=== PATIENT | female | born 1995 | race African-American/Black ===

== ENCOUNTER 2021-06-30 20:33 | Emergency (ER) | payer BC ==
[~2021-06-30] VITALS: Ht 170.2 cm; Wt 118.8 kg
--- NOTE | 2021-06-30 21:26 | PHYS DOC ---
Past History Past Medical History: Asthma Past Surgical History: No Surgical History Smoking: Non-smoker Alcohol Use: None Drug Use: None General Adult EDM: Chief Complaint: LOWER EXTREMITY SWELLING HPI: HPI: 26-year-old female presents with 1-2 day history of bilateral lower extremity edema, headache, and shortness of breath. Patient reports she is 7 months as a . Denies any vaginal bleeding or discharge. Patient reports recent OB visit 2 weeks ago without any concern, however the prior visit there was some possible concerned that patient may develop preeclampsia. Patient reports she recently traveled and had been hot tubbing and had increased activity prior to the symptoms starting. Patient reports she spoke to her sister who is a "triage nurse "who instructed patient to present to the ER for further evaluation. Denies trauma. Denies fever or chills. Reports prior positive COVID-19 test approximately 1 month ago. Review of Systems: Review of Systems: Constitutional: Denies fever or chills Eyes: Denies redness or eye pain HENT: Denies nasal congestion or sore throat Respiratory: Denies cough; reports mild shortness of breath Cardiovascular: Denies chest pain or palpitations GI: Denies abdominal pain, nausea, or vomiting /SOFTWARE TESTER: Denies dysuria or hematuria; reports ; denies vaginal bleeding or discharge Musculoskeletal: Denies back pain; reports leg swelling Integument: Denies rash or skin lesions Neurologic: Reports headache; denies focal weakness or sensory changes Complete systems were reviewed and found to be within normal limits, except as documented in this note. Current Medications: Current Meds: Current Medications Medications (Trade) Dose Ordered [facility] Start Time Stop Time Status Last Admin Dose Admin Acetaminophen (Tylenol) 500 mg 1X ONCE 06/30/21 21:15 06/30/21 21:16 UNV Physical Exam: PE: Constitutional: Well developed, well nourished, no acute distress, non-toxic appearance HENT: Normocephalic, atraumatic Eyes: PERRL, EOMI, conjunctiva normal, no discharge Neck: Normal range of motion, supple Lungs & Thorax: No respiratory distress, equal chest rise and fall Abdomen: Gravid abdomen, no tenderness Skin: Warm, dry, no erythema, no rash Extremities: No tenderness, ROM intact, 2+ BLE edema- non-pitting Neurologic: Alert and oriented X 3, normal motor function, normal sensory function, no focal deficits noted Psychologic: Affect normal, judgment normal EKG: EKG: [] Radiology/Procedures: Radiology/Procedures: [] Heart Score: C/O Chest Pain: N/A Course & Med Decision Making: Course & Med Decision Making Pertinent Lab studies reviewed. (See chart for details) female presents with 1 to 2-day history of bilateral lower extremity edema, headache, and shortness of breath. Vital signs stable. Blood pressure within normal limits. Sats stable. Labs obtained and posted to chart. heart tones normal. Patient stable for discharge with outpatient follow-up with PCP/OB-SOFTWARE TESTER. Discussed findings and plan with patient and significant other, who acknowledge understanding and agreement. [employer] Disclaimer: [employer] Disclaimer: This electronic medical record was generated, in whole or in part, using a voice recognition dictation system. Departure Departure: Impression: Primary Impression: Mild peripheral edema Additional Impressions: Headache Qualified Codes: R51.9 - Headache, unspecified Third trimester Disposition: HOME / SELF CARE / HOMELESS Condition: STABLE Referrals: PCP,NO (PCP) Patient Instructions: Headache, FAQs, Peripheral Edema, - Third Trimester, [id number] Additional Instructions: Elevate extremities. Take Tylenol for headache. Please follow closely with your PCP/OB-SOFTWARE TESTER for further evaluation and treatment. CONNIE SCHRADER DO Jun 30, 2021 21:26
[2021-06-30] MEDS: ACETAMINOPHEN 500 MG TABLET PO ONE (21:35)
[2021-06-30 21:52] LABS: BASO % 0 % (0-3); EOS # 0.3 x10^3/uL (0.0-0.7); EOS % 2 % (0-3); HEMATOCRIT 34.6 % (36.0-47.0); HEMOGLOBIN 11.4 g/dL (12.0-15.5); LYMPH # 2.8 x10^3/uL (1.0-4.8); LYMPH % 20 % (24-48); MEAN CORPUSCULAR HEMOGLOBIN 30 pg (25-35); MEAN CORPUSCULAR HGB CONC 33 g/dL (31-37); MEAN CORPUSCULAR VOLUME 91 fL (79-100); MONO # 0.9 x10^3/uL (0.0-1.1); MONO % 7 % (0-9); NEUT # 9.8 x10^3uL (1.8-7.7); NEUT % 71 % (31-73); PLATELET COUNT 233 x10^3/uL (140-400); RED BLOOD COUNT 3.82 x10^6/uL (3.50-5.40); RED CELL DISTRIBUTION WIDTH 14.1 % (11.5-14.5); WHITE BLOOD COUNT 13.8 x10^3/uL (4.0-11.0)
[2021-06-30 21:54] VITALS: BP 115/63
[2021-06-30 22:01] LABS: CREATININE 0.5 mg/dL (0.6-1.0); GFR 183.4; POTASSIUM 3.8 mmol/L (3.5-5.1)
[2021-06-30 22:03] LABS: BILIRUBIN,URINE NEG (NEG); CLARITY,URINE CLOUDY; COLOR,URINE YELLOW; GLUCOSE,URINE NEG (NEG)
[2021-06-30 22:04] LABS: NITRITE,URINE NEG (NEG); UROBILINOGEN,URINE 0.2 mg/dL (0.2 mg/dL)
[2021-06-30 22:06] LABS: BACTERIA,URINE 0 /HPF (0-FEW); RBC,URINE 0 /HPF (0-2); SQUAMOUS EPITHELIAL CELL,UR MOD /LPF; WBC,URINE 0 /HPF (0-4)
[2021-06-30 22:07] LABS: ALBUMIN 2.4 g/dL (3.4-5.0); ALBUMIN/GLOBULIN RATIO 0.9 (1.0-1.7); MAGNESIUM 1.9 mg/dL (1.8-2.4); TOTAL BILIRUBIN 0.1 mg/dL (0.2-1.0); TOTAL PROTEIN 5.2 g/dL (6.4-8.2)
== END 2021-06-30 22:20 | disposition home or self-care (01) ==
LOC: ER 20:33
DX: O12.03 Gestational edema, third trimester (principal); R51.9 Headache, unspecified; O99.513 Diseases of the respiratory system complicating pregnancy, third trimester; J45.909 Unspecified asthma, uncomplicated; Z3A.28 28 weeks gestation of pregnancy
CPT/HCPCS: 36415; 80053; 81001; 83615; 83735; 85025; 99283

== ENCOUNTER 2021-07-03 11:29 | Emergency (ER) | payer BC ==
[~2021-07-03] VITALS: Ht 170.2 cm; Wt 118.8 kg
--- NOTE | 2021-07-03 12:31 | PHYS DOC ---
Past History Past Medical History: Asthma Additional Past Medical Histor: PT HAD COVID IN MAY 2021 Past Surgical History: Other Additional Past Surgical Histo: acl rt knee Smoking: Non-smoker Alcohol Use: None Drug Use: None General Adult EDM: Chief Complaint: VAGINAL BLEEDING HPI: HPI: Patient is a 26-year-old female who presents with vaginal bleeding with . Patient states "I was at lunch and went to go to the bathroom and I had dark red blood in my underwear and some clots". Patient reports mild cramping which she states is normal for her. Denies nausea/vomiting. Patient states that she was positive for Covid in May and placed on a daily aspirin. 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 Patient is 31 weeks . G1, P0. Denies medical history. Review of Systems: Review of Systems: Constitutional: Denies fever or chills Eyes: Denies change in visual acuity HENT: Denies nasal congestion or sore throat Respiratory: Denies cough or shortness of breath Cardiovascular: Denies chest pain or edema GI: Reports mild abdominal cramping : Reports dark red blood and clots. Denies dysuria Musculoskeletal: Denies back pain or joint pain Integument: Denies rash Neurologic: Denies headache, focal weakness or sensory changes Endocrine: Denies polyuria or polydipsia Lymphatic: Denies swollen glands Psychiatric: Denies depression or anxiety Allergies: Allergies: Allergies Coded Allergies Type Severity Reaction Last Updated Verified No Known Drug Allergies 07/03/21 No Physical Exam: PE: Constitutional: Well developed, well nourished, no acute distress, non-toxic appearance. [] HENT: Normocephalic, atraumatic, bilateral external ears normal, oropharynx moist, no oral exudates, nose normal. [] Eyes: PERRLA, EOMI, conjunctiva normal, no discharge. [] Neck: Normal range of motion, no tenderness, supple, no stridor. [] Cardiovascular:Heart rate regular rhythm, no murmur [] Lungs & Thorax: Bilateral breath sounds clear to auscultation [] Abdomen: Bowel sounds normal, soft, no tenderness, no masses, no pulsatile masses. [] Skin: Warm, dry, no erythema, no rash. [] Back: No tenderness, no CVA tenderness. [] Extremities: No tenderness, no cyanosis, no clubbing, ROM intact, no edema. [] Neurologic: Alert and oriented X 3, normal motor function, normal sensory function, no focal deficits noted. [] Psychologic: Affect normal, judgement normal, mood normal. [] Current Patient Data: Vital Signs: Vital Signs Date Time Temp Pulse Resp B/P (MAP) Pulse Ox O2 Delivery O2 Flow Rate FiO2 07/03/21 11:35 98.2 104 18 144/74 98 Room Air EKG: EKG: [] Radiology/Procedures: Radiology/Procedures: []EXAM: OBSTETRIC ULTRASOUND. HISTORY: Vaginal bleeding in . COMPARISON: None. FINDINGS: Sonographic evaluation of the uterus, fetus and maternal pelvis was performed. There is a single fetus in vertex presentation. heart rate is 119 bpm. Estimated gestational age based on measurements is 31 weeks 4 days. Head circumference, biparietal diameter, abdominal circumference and femur length are commensurate. Estimated weight is 1683 g, at 46th percentile The placenta is anterior. There is no evidence of placenta previa no clear subchorionic collection. Amniotic fluid volume appears normal with amniotic fluid index 19.2 cm. The cervix is closed and measures 4.2 cm. The stomach and bladder are visualized. The cord is three-vessel. The maternal adnexa are obscured by positioning currently. IMPRESSION: 1. Single fetus in vertex presentation. heart rate 119 bpm. Estimated gestational age based on measurements 31 weeks 4 days. Electronically signed by: Avril Alejo MD (07/03/2021 12:39 PM) [id number] Heart Score: C/O Chest Pain: No Risk Factors: Risk Factors: DM, Current or recent (<one month) smoker, HTN, HLP, family history of CAD, obesity. Risk Scores: Score 0 - 3: 2.5% MACE over next 6 weeks - Discharge Home Score 4 - 6: 20.3% MACE over next 6 weeks - Admit for Clinical Observation Score 7 - 10: 72.7% MACE over next 6 weeks - Early Invasive Strategies Course & Med Decision Making: Course & Med Decision Making Pertinent Labs and Imaging studies reviewed. (See chart for details) [] 26-year-old female presents with vaginal bleeding. Patient reports that she noticed bright red blood and clotting in her underwear when she went to the restroom. Patient is reporting mild cramping which is normal for her. Denies any increase in pain. I called her PERFORMANCE IMPROVEMENT ANALYST Dr. Harkins at [facility]. Spoke with RN. RN stated the patient had had Covid at 25 weeks. And has been taking a daily aspirin. Denies any other known complications but patient has been seeing a hydramatic specialist to monitor baby. RN wants us to call her back after ultrasound has been completed. heart tones were 150. CBC, CMP, type and screen ordered. All labs unremarkable. UA is negative for infection. Ultrasound shows heart rate at 119. Cervix is closed. No evidence of placental previa. Spoke with Dr. Harkins regarding ultrasound report. Patient's doctor would like patient to return to the emergency room if she has an increase in bleeding, decrease in movement or contractions. Patient's OB feels that it is okay for her to be discharged home at this time. Discussed strict return precautions with patient. Patient is hemodynamically stable upon discharge. Patient states that she understands discharge and is okay with discharge plan . [employer] Disclaimer: [employer] Disclaimer: This electronic medical record was generated, in whole or in part, using a voice recognition dictation system. Departure Departure: Impression: Primary Impression: Vaginal bleeding during Disposition: HOME / SELF CARE / HOMELESS Condition: STABLE Referrals: PCP,TOI (PCP) Patient Instructions: Vaginal Bleeding During , Third Trimester Additional Instructions: You were seen in the emergency room for vaginal bleeding. Ultrasound was negative for abnormalities. I spoke with your PERFORMANCE IMPROVEMENT ANALYST who is okay with you re turning home. You need to return to emergency room at [facility] if you have an increase in bleeding, decrease in feeling the baby move, or an increase in pain or contractions. EMERGENCY DEPARTMENT GENERAL DISCHARGE INSTRUCTIONS Thank you for coming to [facility] (ED) today and trusting us with you care. We trust that you had a positivie experience in our Emergency Department. If you wish to speak to the department management, you may call the director at [phone]. YOUR FOLLOW UP INSTRUCTIONS ARE FOLLOWS: 1. Do you have a private Doctor? If you do not have a private doctor, please a sk for a resource list of physicians or clinics that may be able to assist you with follow up care. 2. The Emergency Physician has interpreted your x-rays. The X-Ray specialist will also review them. If there is a change in the findings, you will be notified in 48 hours when at all possible. 3. A lab test or culture has been done, your results will be reviewed and you will be notified if you need a change in treatment. ADDITIONAL INSTRUCTIONS AND INFORMATION: 1. Your care today has been supervised by a physician who is specially trained in emergency care. Many problems require more than one evaluation for a complete diagnosis and treatment. We recommend that you schedule your follow up appointment as recommended to ensure complete treatment of you illness or injury. If you are unable to obtain follow up care and continue to have a problem, or if your condition worsens, we recommend that you return to the ED. 2. We are not able to safely determine your condition over the phone nor are we able to give sound medical advice over the phone. For these safety reasons, if you call for medical advice we will ask you to come to the ED for further evaluation. 3. If you have any questions regarding these discharge instructions please call the ED at [phone]. SAFETY INFORMATION: In the interest of safety, wellness, and injury prevention; we encourage you to wear your sealbelt, if you smoke; quite smoking, and we encourage family to use a protective helmet for bicycling and other sporting events that present an increased risk for head injury. IF YOUR SYMPTOMS WORSEN OR NEW SYMPTOMS DEVELOP, OR YOU HAVE CONCERNS ABOUT YOUR CONDITION; OR IF YOUR CONDITION WORSENS WHILE YOU ARE WAITING FOR YOUR FOLLOW UP APPOINTMENT; EITHER CONTACT YOUR PRIMARY CARE DOCTOR, THE PHYSICIAN WHOSE NAME AND NUMBER YOU WERE GIVEN, OR RETURN TO THE ED IMMEDIATELY. SWATHI BREWER APRN Jul 03, 2021 12:31
[2021-07-03 12:32] LABS: BILIRUBIN,URINE NEG (NEG); CLARITY,URINE CLEAR; COLOR,URINE STRAW; GLUCOSE,URINE NEG (NEG); NITRITE,URINE NEG (NEG); UROBILINOGEN,URINE 0.2 mg/dL (0.2 mg/dL)
[2021-07-03 12:37] LABS: BACTERIA,URINE 0 /HPF (0-FEW); RBC,URINE 0 /HPF (0-2); SQUAMOUS EPITHELIAL CELL,UR MOD /LPF; WBC,URINE 0 /HPF (0-4)
--- NOTE | 2021-07-03 12:42 | RAD ---
EXAM: OBSTETRIC ULTRASOUND. HISTORY: Vaginal bleeding in . COMPARISON: None. FINDINGS: Sonographic evaluation of the uterus, fetus and maternal pelvis was performed. There is a single fetus in vertex presentation. heart rate is 119 bpm. Estimated gestational ag e based on measurements is 31 weeks 4 days. Head circumference, biparietal diameter, abdominal circum ference and femur length are commensurate. Estimated weight is 1683 g, at 46th percentile The placenta is anterior. There is no evidence of placenta previa no clear subchorionic collection. A mniotic fluid volume appears normal with amniotic fluid index 19.2 cm. The cervix is closed and measu res 4.2 cm. The stomach and bladder are visualized. The cord is three-vessel. The maternal adnexa are obscured by positioning currently. IMPRESSION: 1. Single fetus in vertex presentation. heart rate 119 bpm. Estimated gestational age based on measurements 31 weeks 4 days. Electronically signed by: Avril Alejo MD (07/03/2021 12:39 PM) [id number]
[2021-07-03 12:52] LABS: BASO % 0 % (0-3); EOS # 0.2 x10^3/uL (0.0-0.7); EOS % 1 % (0-3); HEMATOCRIT 38.2 % (36.0-47.0); HEMOGLOBIN 12.5 g/dL (12.0-15.5); LYMPH # 1.9 x10^3/uL (1.0-4.8); LYMPH % 15 % (24-48); MEAN CORPUSCULAR HEMOGLOBIN 29 pg (25-35); MEAN CORPUSCULAR HGB CONC 33 g/dL (31-37); MEAN CORPUSCULAR VOLUME 90 fL (79-100); MONO # 0.7 x10^3/uL (0.0-1.1); MONO % 6 % (0-9); NEUT # 9.9 x10^3uL (1.8-7.7); NEUT % 78 % (31-73); PLATELET COUNT 251 x10^3/uL (140-400); RED BLOOD COUNT 4.25 x10^6/uL (3.50-5.40); RED CELL DISTRIBUTION WIDTH 13.9 % (11.5-14.5); WHITE BLOOD COUNT 12.7 x10^3/uL (4.0-11.0)
[2021-07-03 13:00] LABS: CALCIUM 8.3 mg/dL (8.5-10.1); CREATININE 0.5 mg/dL (0.6-1.0); GFR 183.4; POTASSIUM 3.7 mmol/L (3.5-5.1)
[2021-07-03 13:06] LABS: ALBUMIN 2.8 g/dL (3.4-5.0); ALBUMIN/GLOBULIN RATIO 0.7 (1.0-1.7); TOTAL BILIRUBIN 0.1 mg/dL (0.2-1.0); TOTAL PROTEIN 6.6 g/dL (6.4-8.2)
[2021-07-03 13:40] VITALS: BP 121/58
== END 2021-07-03 13:40 | disposition home or self-care (01) ==
LOC: ER 11:29
DX: O46.93 Antepartum hemorrhage, unspecified, third trimester (principal); R10.9 Unspecified abdominal pain; O9A.513 Psychological abuse complicating pregnancy, third trimester; J45.909 Unspecified asthma, uncomplicated; Z3A.31 31 weeks gestation of pregnancy
CPT/HCPCS: 36415; 76815; 80053; 81001; 85025; 86850; 86900; 86901; 99284